=== PATIENT | female | born 1980 | race American Indian/Alaskan Native ===

== ENCOUNTER 2017-04-25 14:03 | Emergency (ER) | payer SELFPAY ==
[2017-04-25 14:25] VITALS: BP 120/78
--- NOTE | 2017-04-25 15:10 | XRay Report ---
LEFT ANKLE, 3 views: History: Left ankle pain. Bone mineralization is normal. No acute osseous abnormality or joint pathology is identified. Moderate diffuse soft tissue swelling is noted. IMPRESSION: Soft tissue swelling.
--- NOTE | 2017-04-25 15:10 | XRay Report ---
LEFT FOOT, 3 views: History: Left foot pain and swelling. The bony architecture is intact. Bony alignment is normal. No soft tissue abnormalities are seen. The joint spaces appear preserved. IMPRESSION: Normal left foot.
--- NOTE | 2017-04-25 15:38 | Emergency Department Report ---
ED Lower Extremity HPI - General Chief Complaint: Extremity Injury, Lower Stated Complaint: FINGER Time Seen by Provider: 04/25/17 15:22 Source: patient Mode of arrival: Wheelchair Limitations: No Limitations - History of Present Illness Initial Comments: pt is 37 y/o aaf who presents for right foot and ankle pain advises twising 3 days ago no fall no trauma pain 4/10 aching exacerbated by prolonged standing and walking MD Complaint: ankle injury Onset/Timin -: days(s) Injury: Ankle: Right Type of Injury: hyperflexion Place: street/outdoors Severity: moderate Severity scale (0 -10): 4 Improves With: NSAID Worsens With: weight bearing, movement, palpation Context: other (twisting ) Associated Symptoms: swelling, able to partially bear weight. denies: numbness , tingling Treatments Prior to Arrival: other (none) - Related Data Previous Rx's Medication Instructions Recorded Last Taken Type Ibuprofen [Motrin 800 MG tab] 800 mg PO TID #30 tablet 04/25/17 Unknown Rx Allergies Allergy/AdvReac Type Severity Reaction Status Date / Time latex Allergy Rash Verified 04/25/17 14:26 Penicillins Allergy Anaphylaxis Verified 04/25/17 14:26 tramadol AdvReac Hives Verified 04/25/17 14:26 ED Review of Systems ROS: Stated complaint: FINGER Other details as noted in HPI Constitutional: denies: chills, fever Eyes: denies: eye pain, eye discharge, vision change ENT: denies: ear pain, throat pain Respiratory: denies: cough, shortness of breath, wheezing Cardiovascular: denies: chest pain, palpitations Endocrine: no symptoms reported Gastrointestinal: denies: abdominal pain, nausea, diarrhea Genitourinary: denies: urgency, dysuria, discharge Musculoskeletal: joint swelling, myalgia Skin: denies: rash, lesions Neurological: denies: headache, weakness, paresthesias Psychiatric: denies: anxiety, depression ED Past Medical Hx - Past Medical History Hx Hypertension: Yes Hx Psychiatric Treatment: Yes (DEPRESSION/ ANXIETY) Additional medical history: ECZEMA - Surgical History Hx Cholecystectomy: Yes Additional Surgical History: LEFT EYE SURGERY. TUBAL LIGATION. LAPAROTOMY - Social History Smoking Status: Never Smoker Substance Use Type: None - Medications Home Medications: Home Medications Medication Instructions Recorded Confirmed Last Taken Type Ibuprofen [Motrin 800 MG tab] 800 mg PO TID #30 tablet 04/25/17 Unknown Rx ED Physical Exam - General Limitations: No Limitations General appearance: alert, in no apparent distress - Head Head exam: Present: atraumatic, normocephalic - Eye Eye exam: Present: normal appearance - ENT ENT exam: Present: mucous membranes moist - Neck Neck exam: Present: normal inspection - Respiratory Respiratory exam: Present: normal lung sounds bilaterally. Absent: respiratory distress - Cardiovascular Cardiovascular Exam: Present: regular rate, normal rhythm. Absent: systolic murmur, diastolic murmur, rubs, gallop - GI/Abdominal GI/Abdominal exam: Present: soft, normal bowel sounds - Rectal Rectal exam: Present: deferred - Extremities Exam Extremities exam: Present: tenderness, normal capillary refill, joint swelling. Absent: pedal edema, calf tenderness - Expanded Lower Extremity Exam Left Hip exam: Present: normal inspection, full ROM Upper Leg exam: Present: normal inspection, full ROM Knee exam: Present: normal inspection, full ROM Lower Leg exam: Present: normal inspection, full ROM Ankle exam: Present: tenderness, swelling. Absent: abrasion, laceration, ecchymosis, deformity, crepidus, dislocation, erythema, anterior draw sign Foot/Toe exam: Present: tenderness, swelling. Absent: abrasion, laceration, ecchymosis, deformity, crepidus, dislocation, erythema, amputation, puncture wound, foreign body, calcaneal tenderness, tenderness at base of 5th metatarsal , nail avulsion, subungual hematoma Neuro vascular tendon exam: Present: no vascular compromise. Absent: pulse deficit, abnormal cap refill, motor deficit, sensory deficit, tendon deficit, extremity cold to touch, pallor, abnormal 2-point discrimination, decreased fine /light touch, foot drop, peroneal nerve deficit, significant pain with passive ROM of distal joint Gait: Positive: observed and limited by pain - Back Exam Back exam: Present: normal inspection, full ROM. Absent: tenderness, CVA tenderness (R), CVA tenderness (L), muscle spasm, paraspinal tenderness, vertebral tenderness - Neurological Exam Neurological exam: Present: alert, oriented X3, CN II-XII intact, reflexes normal - Psychiatric Psychiatric exam: Present: normal affect, normal mood - Skin Skin exam: Present: warm, dry, intact, normal color. Absent: rash ED Course Vital Signs 04/25/17 14:20 Temperature 98.8 F Pulse Rate 108 H Respiratory 16 Rate Blood Pressure 120/78 O2 Sat by Pulse 98 Oximetry ED Lower Extremity MDM - Radiology Data Radiology results: report reviewed normal foot and ankle xray no fracture no soft tissue abnormalities - Medical Decision Making pt is a 37 y/o aaf [employer] work with [employer] who endorse twisting left ankle walking on sidewalk 3 days ago symptoms now include mild swelling and pain with ambulation and flexion , exam: mild left foot and medial ankle swelling no ecchymosis no erythema no deformity PPEPB+2 rom decreased by pain , xray negative for fracture pain 12/30 plan nsaids and muscle relaxant prn for pain , carie, and rice therapy , pt will follow up with pcp if symptoms persist, pt verabalized agreement and understanding of same. Critical care attestation.: If time is entered above; I have spent that time in minutes in the direct care of this critically ill patient, excluding procedure time. ED Disposition Clinical Impression: Ankle strain Qualifiers: Encounter type: initial encounter Laterality: left Qualified Code(s): S96.912A - Strain of unspecified muscle and tendon at ankle and foot level, left foot, initial encounter Disposition: TO HOME OR SELFCARE Is pt being admited?: No Does the pt Need Aspirin: No Condition: Good Instructions: RICE Therapy (ED), Ankle Exercises (GEN) Prescriptions: Ibuprofen [Motrin 800 MG tab] 800 mg PO TID #30 tablet Referrals: PRIMARY CARE, [Primary Care Provider] - 3-5 Days Time of Disposition: 15:45
[2017-04-25] MEDS ORDERED: MOTRIN PO ONE (15:43)
== END 2017-04-25 16:23 | disposition home or self-care (01) ==
LOC: ED 14:03
DX: S96.912A Strain of unspecified muscle and tendon at ankle and foot level, left foot, initial encounter (principal); I10 Essential (primary) hypertension; X50.9XXA Other and unspecified overexertion or strenuous movements or postures, initial encounter; Y93.9 Activity, unspecified; Y92.9 Unspecified place or not applicable; Y99.9 Unspecified external cause status